=== PATIENT | female | born 1960 | race Caucasian/White ===

== ENCOUNTER 2020-01-18 17:08 | Observation (INO) | payer MEDICARE, SELFPAY ==
--- NOTE | ~2020-01-18 | CT_ITS ---
EXAMINATION: CT brain wo con DATE: 01/18/2020 18:12 INDICATION: Loss of balance resulting in fall with posterior head injury TECHNIQUE: Computed tomography (CT) of the head was performed without intravenous contrast. Sagittal and coronal reconstructions were performed. The mA was adjusted according to patient size. Iterative reconstruction technique was employed. The dose-length product was 529.67 mGy-cm. COMPARISON: head CT dated 05/19/2018 FINDINGS: No fracture. Unchanged old infarcts in the left occipital lobe, left parietal lobe, right parietal oc cipital region and in both the left and right cerebellar hemispheres. Additional unchanged small old lacunar infarct at the right lentiform nucleus and anterior limb of the left internal capsule. No acu te intracranial hemorrhage, acute infarction or abnormal extra axial fluid collection. Ventricles are normal and symmetric. No mass/mass effect. There is moderate scattered periventricular and subcortic al white matter hypoattenuation consistent with chronic small vessel ischemic disease. Changes of lef t cataract surgery. The orbits and mastoid air cells are normal. Mild mucosal thickening in the bilat eral sphenoid and left maxillary sinus. IMPRESSION: 1. No fracture or acute intracranial process. 2. Unchanged old infarcts in the left occipital lobe, left parietal lobe, right parietal occipital re gion, right lentiform nucleus, anterior limb of the left internal capsule and bilateral cerebellar he mispheres. 3. Moderate scattered nonspecific cerebral white matter hypoattenuation consistent with chronic small vessel ischemic disease. Reviewed, dictated and finalized at location A. IMPRESSION: 1. No fracture or acute intracranial process. 2. Unchanged old infarcts in the left occipital lobe, left parietal lobe, right parietal occipital region, right lentiform nucleus, anterior limb of the left internal capsule and bilateral cerebellar hemispheres. 3. Moderate scattered nonspecific cerebral white matter hypoattenuation consist ent with chronic small vessel ischemic disease.
--- NOTE | ~2020-01-18 | CT_ITS ---
EXAMINATION: CT lumbar spine wo con DATE: 01/18/2020 18:12 INDICATION: Low back pain post fall TECHNIQUE: Computed tomography (CT) of the lumbar spine was performed without intravenous contrast. A utomated exposure control and iterative reconstruction technique were employed. The dose-length produ ct was 903.28 mGy-cm. COMPARISON: None FINDINGS: Unchanged mild lumbar levoscoliosis centered at L3-L4. There is severe associated right-side predomin ant disc height loss with associated degenerative endplate changes at this level. Vertebral body heig hts are normal. No fracture. Mild disc height loss at L2-L3, L4-L5 and mild right-sided predominant d isc height loss at L5-S1. Paravertebral soft tissues are unremarkable. Cholecystectomy clips at the g allbladder fossa. The following disc levels are specifically discussed: T11-T12: The disc does not extend beyond the endplate margin. There is mild/moderate bilateral facet joint osteoarthritis. There is no neural foraminal stenosis. There is no central canal stenosis. T12-L1: Disc is mildly bulging. There is mild left and mild to moderate right facet joint osteoarthri tis. There is no neural foraminal stenosis. There is no central canal stenosis. L1-L2: Disc is mildly bulging. There is mild left and moderate right facet joint osteoarthritis. Ther e is mild bilateral neural foraminal stenosis. There is mild central canal stenosis. L2-L3: Disc is bulging. There is hypertrophy of the ligamentum flavum. There is mild left and mild to moderate right facet joint osteoarthritis. There is mild to moderate bilateral neural foraminal sten osis. There is mild to moderate central canal stenosis. L3-L4: Posterior disc osteophyte complex. There is moderate bilateral facet joint osteoarthritis. The re is moderate right and mild to moderate left neural foraminal stenosis. There is moderate central c anal stenosis. L4-L5: Disc is bulging. There is moderate bilateral facet joint osteoarthritis. There is mild to mode rate bilateral neural foraminal stenosis. There is mild central canal stenosis. L5-S1: Disc is bulging. There is moderate left and moderate to severe right facet joint osteoarthriti s. There is mild bilateral neural foraminal stenosis. There is mild central canal stenosis. IMPRESSION: 1. No acute osseous abnormality. 2. Mild lumbar levoscoliosis with severe spondylosis at L3-L4. Reviewed, dictated and finalized at location A.
[2020-01-18 17:16] VITALS: BP 153/94; PULSE 107; RESP 18; TEMP 36.9; O2SAT 97
--- NOTE | 2020-01-18 17:28 | ECG_ITS ---
Measurements Intervals [place] Rate: 85 P: 35 LA: 210 QRS: 46 QRSD: 84 T: 60 QT: 369 QTc: 441 Interpretive Statements SINUS RHYTHM WITH FIRST DEGREE AV BLOCK POSSIBLE LEFT ATRIAL ENLARGEMENT NONSPECIFIC T-WAVE ABNORMALITY- HIGH LATERAL LEADS ABNORMAL ECG Electronically Signed On 01-19-2020 7:02:01 CDT by Javier Lugo D.O.
--- NOTE | 2020-01-18 17:35 | ED.BACK ---
HPI - Back Pain/Injury General Chief Complaint: Back Pain/Injury Stated Complaint: back pain after fall yesterday Time Seen by Provider: 01/18/20 17:18 History of Present Illness HPI Narrative: Low back pain since falling yesterday. She reports losing her balance and falling backwards striking her head and back. The pain is severe. No radiation. She also reports increased urination, nausea, and weakness. She says that she has not been using insulin for 10-11 years because she ran out of needles. History limited by poor historian. Related Data Home Medications Medication Instructions Recorded Confirmed carvedilol 12.5 mg tablet 12.5 mg PO BID tablet 09/27/19 01/18/20 clonazepam 1 mg PO BID 01/18/20 01/18/20 trazodone 50 mg PO HS 01/18/20 01/18/20 Allergies Allergy/AdvReac Type Severity Reaction Status Date / Time sumatriptan Allergy Severe Unknown Verified 07/20/19 10:37 guaifenesin Allergy Intermediate Unknown Verified 07/20/19 10:37 metformin Allergy Intermediate hives Verified 09/29/19 13:39 tramadol Allergy Intermediate Unknown Verified 07/20/19 10:37 ketorolac Allergy Unknown Unknown Verified 07/20/19 10:37 naproxen Allergy Unknown Rash Verified 07/20/19 10:37 pregabalin Allergy Unknown Rash Verified 07/20/19 10:37 sertraline Allergy Unknown Unknown Verified 07/20/19 10:37 KETOROLAC TROMETHAMINE Allergy Intermediate RASH Uncoded 07/20/19 10:37 SERTRALINE HCL Allergy Mild Hives / Uncoded 07/20/19 10:37 Red Face METFORMIN HCL AdvReac Mild Nausea and Uncoded 07/20/19 10:37 Vomiting SUMATRIPTAN SUCCINATE AdvReac Mild Other Uncoded 07/20/19 10:37 Review of Systems Review of Systems: All systems reviewed & are unremarkable except as noted in HPI and below Constitutional: Constitutional: Denies fever(s) and Reports weakness Cardiovascular: Cardiovascular: Denies chest pain Respiratory: Respiratory: Reports dyspnea Gastrointestinal: Gastrointestinal: Reports nausea Genitourinary: Genitourinary: Reports nocturia Musculoskeletal: Musculoskeletal: Reports back pain Neurologic: Reports dizziness Psychiatric: Psychiatric: Reports anxiety and Reports depression [facility] Past Medical History Medical History (Updated 01/19/20 @ 07:08 by Benito Ruggiero MD) Age related osteoporosis Anxiety and depression Cerebrovascular accident With mild right-sided weakness. Chronic obstructive pulmonary disease Chronic shoulder pain Diabetic peripheral neuropathy Dyslipidemia Essential hypertension Insulin dependent type 2 diabetes mellitus Medically noncompliant Migraine Seizure Surgical History Surgical History (Updated 01/19/20 @ 00:04 by Erika Delgado PA-C) History of cholecystectomy History of shoulder surgery History of tubal ligation Family History Family History Mother Bone cancer Hypertension Father Cancer of kidney Hypertension Social History Social History (Updated 01/19/20 @ 00:06 by Erika Delgado PA-C) Social History: The patient lives in [place] with her . They have 1 son. 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 She smoked a half a pack of cigarettes for short period of time and has not smoked for many years. She drinks alcohol rarely and in moderation. No illicit substance use. She designates her , Dale as her surrogate decision maker and she wishes to be a full code. Smoking packs per day: 0.5 Smoking cigarettes per day: 10.0 Spiritual care concerns: Yes (roman catholic) Exam Const: General: no acute distress, alert and ill appearing chronically Nutritional Appearance: obese Orientation/consciousness: patient oriented x3 HENMT: Teeth and gingiva: abnormal tooth and associated gingiva Eyes: Pupils: Equal, round and reactive pupils present Resp: Effort & Inspection: normal respiratory effort Auscultation: clear to auscultation bila
[2020-01-18] MEDS: SODIUM CHLORIDE 0.9% IV 1,000 ML 999 ML IV CONT ×2 (17:48→18:40)
[2020-01-18 17:49] LABS: Basophils Percent Auto 0.7 % (0.2-1.2); Eosinophils Absolute Auto 0.1 K/mm3 (0-0.3); Eosinophils Percent Auto 2.1 % (0-4.4); Hematocrit 36.7 % (37.0-47.0); Hemoglobin 12.3 g/dL (12.0-15.0); Immature Granulocyte Absolute 0.02 K/mm3 (0.00-0.031); Immature Granulocyte Percent A 0.3 % (0-0.5); Lymphocytes Absolute Auto 1.79 K/mm3 (0.9-3.2); Lymphocytes Percent Auto 30.8 % (18.3-44.2); Mean Corpuscular HGB Conc 33.5 g/dl (32-36); Mean Corpuscular Hemoglobin 28.8 pg (26-34); Mean Corpuscular Volume 85.9 fl (80-100); Mean Platelet Volume 9.8 fl (7.4-10.4); Monocytes Absolute Auto 0.5 K/mm3 (0.1-0.6); Neutrophils Absolute Auto 3.3 K/mm3 (1.3-6.7); Neutrophils Percent Auto 57.1 % (45.5-73.1); Platelet Count Result 312 k/mm3 (150-375); Red Blood Count 4.27 M/mm3 (4.2-5.4); Red Cell Distribution Width 13.6 % (11.5-14.5); White Blood Count 5.8 K/mm3 (4.5-10.0)
[2020-01-18 18:00] LABS: Lactic Acid Reflex 3.6 mmol/L (0.7-2.1)
[2020-01-18 18:05] LABS: Alanine Aminotransferase 17 U/L (4-35); Albumin Level 4.1 g/dL (3.5-5.1); Alkaline Phosphatase 101 U/L (38-126); Aspartate Amino Transferase 21 U/L (14-36); Bilirubin,Total 0.2 mg/dL (0.2-1.3); Blood Urea Nitrogen 20 mg/dL (7-17); Carbon Dioxide 19 mmol/L (22-30); Chloride 100 mmol/L (98-107); Estimated CRCL calculation 43 ml/min; Estimated Glomerular Filt Rate 57; Glucose 580 mg/dL (65-105); Potassium 4.1 mmol/L (3.4-5.0); Sodium 131 mmol/L (137-145)
--- NOTE | 2020-01-18 18:29 | PC.NURSE ---
Pt contaminated urine sample with stool upon collection. Sample was thrown away.
[2020-01-18 18:31] VITALS: BP 180/89; PULSE 82; RESP 97; O2SAT 97
[2020-01-18] MEDS: INSULIN HUMAN REGULAR (*BKC) 100 UNITS/ML 12 UNITS IV PUSH (18:40)
[2020-01-18 19:13] LABS: Add Urine Microscopic? YES; Appearance Urine Clear (Clear); Bilirubin Urine Negative (Negative); Blood Urine Negative (Negative); Color Urine Colorless (Yellow); Glucose Urine UA 3+ mg/dL (Negative); Ketones Urine Negative (Negative); Leukocyte Esterase Ur Negative LEU/UL (Negative); Nitrate Urine Negative (Negative); Protein Urine Negative (Negative); RBC Urine 0-2 /hpf (0-2); Specific Grav Ur 1.014 (1.001-1.035); Squamous Epithelial Cell Urine Few /hpf (Few); Urobilinogen Urine Negative mg/dL (<2.0); WBC Urine 0-3 /hpf
[2020-01-18 19:37] LABS: Glucose Point of Care 295 (65-105)
[2020-01-18 19:54] VITALS: BP 227/95; PULSE 85; RESP 17; TEMP 36.1; O2SAT 99
--- NOTE | 2020-01-18 20:42 | PC.NURSE ---
This patient, Roxane Long, was admitted to Medical Room 349-01. Patient/family oriented to hospital policies and general routines including ID bracelet, bed and alarms, visiting hours, pain management, procedures, bathroom and other care routines, personal items, smoking policy, room service/diet, and visiting hours. Valuables list has been completed. Information on how to activate the Rapid Response Team has been discussed. Patient/Family are encouraged to report perceived risks to care and to ask questions if they do not understand what they are told or what they should do.
[2020-01-18 20:47] LABS: Reflex Lactic Acid Yes or No Add Lactic
[2020-01-18 20:54] VITALS: BP 150/108; PULSE 81; RESP 16; TEMP 36.3; O2SAT 100
[2020-01-18 20:55] VITALS: BMI 24.6
[2020-01-18 21:45] LABS: Lactic Acid 1.9 mmol/L (0.7-2.1)
--- NOTE | 2020-01-18 22:00 | PM.IMHP ---
H&P: HPI History of Present Illness Chief complaint: Back pain after fall. Narrative: Roxane Long is a 59-year-old female with history of medication noncompliance, insulin-dependent diabetes with peripheral neuropathy, hypertension, dyslipidemia, and history of stroke who presented to the emergency department earlier this evening from home for evaluation of back pain after a fall yesterday. She had a mechanical fall yesterday, tripping over a rug while caring a case of soda. She landed on her back, striking her head on the floor, and she has had pain in her mid to lower back since that time. She has a difficult time describing the pain, but is caused her enough grief that she came to the emergency department as Tylenol was of no benefit. She has been ambulating with a walker since that time. Imaging done on arrival to the emergency department was unremarkable, but she was found to have severe hyperglycemia and with further questioning she mentions that she ran out of her medicines 2 weeks ago, however later in the interview she tells me it has been months since she has taken some of her medications. She does continue to check her glucose, and says it typically runs in the 300s. Currently she rates her pain 6/10 and states is in the mid to low back, without radiation. She denies focal weakness, paresthesias (other than her chronic neuropathy), saddle anesthesia, bowel and bladder incontinence. No vertigo or auditory or visual changes. Review of Systems Review of Systems: Narrative: Twelve systems were reviewed with pertinent positives and negatives as per HPI. She does admit to chronic, poor balance that may be due to her peripheral neuropathy. No fever, chills, or sweats. She denies recent cold and flu symptoms. No cough or shortness of breath. She denies chest pain. Appetite has been okay, but she has lost about 12 pounds since winter for unclear reasons. She denies nausea, vomiting, and diarrhea. No blood or mucus in the stool. She denies dysuria and hematuria. She occasionally has blurry vision and does report polydipsia and polyuria. Except as documented, all other systems were reviewed and are negative. [facility] Past Medical History Medical History (Updated 01/19/20 @ 00:13 by Erika Delgado PA-C) Age related osteoporosis Anxiety and depression Cerebrovascular accident With mild right-sided weakness. Chronic obstructive pulmonary disease Chronic shoulder pain Diabetic peripheral neuropathy Dyslipidemia Essential hypertension Insulin dependent type 2 diabetes mellitus Medically noncompliant Migraine Seizure Surgical History Surgical History (Updated 01/19/20 @ 00:04 by Erika Delgado PA-C) History of cholecystectomy History of shoulder surgery History of tubal ligation Family History Family History Mother Bone cancer Hypertension Father Cancer of kidney Hypertension Social History Social History (Updated 01/19/20 @ 00:06 by Erika Delgado PA-C) Social History: The patient lives in [place] with her . They have 1 son. 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 She smoked a half a pack of cigarettes for short period of time and has not smoked for many years. She drinks alcohol rarely and in moderation. No illicit substance use. She designates her , Dale as her surrogate decision maker and she wishes to be a full code. Smoking packs per day: 0.5 Smoking cigarettes per day: 10.0 Spiritual care concerns: Yes (worship) Meds Home Medications and Allergies Home Medications Medication Instructions Recorded Confirmed Type lisinopril 20 mg tablet 20 mg PO BID #60 tablet 06/23/19 01/18/20 Rx venlafaxine 150 mg 150 mg PO DAILY #30 cap 07/20/19 01/18/20 Rx capsule,extended release 24 hr [id number]-aacabliibalmc-pazglleu 1 tablet PO .COMPLEX PRN tablet 08/10/19 Hist
[2020-01-18] MEDS: LACTATED RINGERS 1,000 ML 125 ML IV CONT (22:46)
[2020-01-18 23:05] LABS: Glucose Point of Care 147 (65-105)
[2020-01-19] VITALS (11 sets, daily range): BP systolic 160–193; BP diastolic 82–98; PULSE 71–90; RESP 14–18; TEMP 36.2; O2SAT 97–100; BMI 24.6
[2020-01-19 00:22] LABS: Hemoglobin A1C 12.3 % (<5.7)
[2020-01-19] MEDS: CLONAZEPAM 0.5 MG TAB PO ×3 (00:22→17:02)
[2020-01-19] MEDS: hydrALAZINE HCL 20 MG/ML VIAL 5 MG IV PUSH (05:30)
[2020-01-19 05:38] LABS: Hematocrit 34.1 % (37.0-47.0); Hemoglobin 11.3 g/dL (12.0-15.0); Mean Corpuscular HGB Conc 33.1 g/dl (32-36); Mean Corpuscular Hemoglobin 28.3 pg (26-34); Mean Corpuscular Volume 85.5 fl (80-100); Mean Platelet Volume 9.2 fl (7.4-10.4); Platelet Count Result 294 k/mm3 (150-375); Red Blood Count 3.99 M/mm3 (4.2-5.4); Red Cell Distribution Width 13.4 % (11.5-14.5); White Blood Count 6.8 K/mm3 (4.5-10.0)
[2020-01-19 05:56] LABS: Blood Urea Nitrogen 18 mg/dL (7-17); Calcium 8.3 mg/dL (8.4-10.2); Carbon Dioxide 24 mmol/L (22-30); Chloride 108 mmol/L (98-107); Estimated CRCL calculation 38 ml/min; Estimated Glomerular Filt Rate 57; Glucose 257 mg/dL (65-105); Magnesium 1.6 mg/dL (1.6-2.3); Phosphorus 4.2 mg/dL (2.5-4.5); Potassium 3.8 mmol/L (3.4-5.0); Sodium 136 mmol/L (137-145)
[2020-01-19] MEDS: LABETALOL HCL INJ 100 MG/20 ML VIAL 20 MG IV PUSH (06:40)
[2020-01-19 07:49] LABS: Glucose Point of Care 254 (65-105)
[2020-01-19] MEDS: INSULIN ASPART (*BKC) 100 UNITS/ML SUB-Q ×5 (09:16→16:10)
[2020-01-19] MEDS: MAGNESIUM SULF 2 GM/WATER 50ML 2 GM/50 ML BAG IVPB (09:19)
[2020-01-19 11:45] LABS: Glucose Point of Care 302 (65-105)
--- NOTE | 2020-01-19 12:23 | PM.IMPN ---
Progress Note: A&P Assessment and Plan (1) Insulin dependent type 2 diabetes mellitus: Code(s): E11.9 - Type 2 diabetes mellitus without complications; Z79.4 - [facility] (current) use of insulin Status: Acute Assessment and Plan: She has been out of her insulin for quite some time. Hemoglobin A1c 12.3. She has been seen by Jaimee, brewery pumper. Start back on basal-bolus insulin regimen based on her weight; 12 units lantus qHS, 4 novolog TIDWM. Blood sugar 580 last night, down to 200s today. Continue to monitor with accu-cheks. (2) Fall from ground level: Code(s): W18.30XA - Fall on same level, unspecified, initial encounter Status: Acute Assessment and Plan: Mechanical fall 01/16, reportedly tripping over a rug. It sounds as though she has poor balance chronically, may be due to neuropathy. PT/OT consulted. Initiate fall precautions. (3) Back pain: Qualifiers: Back pain laterality: unspecified Back pain location: low back pain Chronicity: chronic Sciatica presence: without sciatica Qualified Code(s): M54.5 - Low back pain; G89.29 - Other chronic pain Code(s): M54.9 - Dorsalgia, unspecified Status: Acute Assessment and Plan: [place] PRN, heating pad. (4) Medically noncompliant: Code(s): Z91.19 - Patient's noncompliance with other medical treatment and regimen Status: Acute Assessment and Plan: She was fired from her primary care provider Dr Cutler sometime in September. It is really unclear if and what medication she is currently still taking. She has poor insight with regards to her medical conditions. (5) Essential hypertension: Code(s): I10 - Essential (primary) hypertension Status: Acute Assessment and Plan: Blood pressures as high as 227/95. Appears she used to take norvasc and lisinopril, will add these back and continue IV hydralazine PRN. (6) Anxiety and depression: Code(s): F41.9 - Anxiety disorder, unspecified; F32.9 - Major depressive disorder, single episode, unspecified Status: Acute Assessment and Plan: Will continue clonazepam p.r.n. She reports she is supposed to be on Effexor and requests to add this back. (7) Elevated lactic acid level: Code(s): R79.89 - Other specified abnormal findings of blood chemistry Status: Resolved Assessment and Plan: No history to suggest underlying infection. 3.9 on arrival improved to 1.9. Subjective Date/time seen: 01/19/20 1130 Interval history: Ms. Long is a 59yo F admitted for hyperglycemia. She came in to ED for back pain after a fall at home and blood sugar was found to be 580 in ED. Her responses have been inconsistent for each provider but it is clear she has been not using her insulin for a period of time. On my encounter her only complaint is her lower back discomfort which she notes has improved with Plush and heating pad. She reports no abdominal pain, nausea, or vomiting today. No chest pain or shortness of breath. Review of Systems Review of Systems: Narrative: Twelve systems were reviewed with pertinent positives and negatives as per HPI. Exam Narrative: Exam Narrative: General: Female appears older than stated age; resting comfortably in bedside chair in no acute distress. HEENT: Normocephalic, EOMI, oral mucosa tacky, edentulous. Cardiovascular: Rate and rhythm are regular. Respiratory: Lungs clear to auscultation all beltre. Non-labored breathing. Abdomen: Soft, non-tender, non-distended, bowel sounds present. Extremities: Peripheral pulses intact. No edema. Neuro: No focal neurological deficits. Speech is clear. Judgment and insight are poor. Objective Data Vital Signs Vital Signs:
[2020-01-19] MEDS: lisinopriL 20 MG TABLET PO (12:41)
[2020-01-19] MEDS: PANTOPRAZOLE 40 MG TABLET PO (12:41)
[2020-01-19] MEDS: LACTATED RINGERS 1,000 ML 60 ML IV CONT (13:03)
[2020-01-19] MEDS: VENLAFAXINE HCL 25 MG TABLET PO (16:07)
[2020-01-19] MEDS: hydrALAZINE HCL 20 MG/ML VIAL 10 MG IV PUSH (16:11)
[2020-01-19 16:41] LABS: Glucose Point of Care 273 (65-105)
[2020-01-19] MEDS: carvediloL 12.5 MG TABLET PO (20:35)
[2020-01-19] MEDS: INSULIN GLARGINE (*BKC) 100 UNITS/ML 12 UNITS SUB-Q (20:38)
[2020-01-19 20:54] LABS: Glucose Point of Care 327 (65-105)
[2020-01-19] MEDS: TOLNAFTATE 1% POWDER 45 GM BTL 1 APPLIC TOPICAL (23:52)
[2020-01-20] VITALS (7 sets, daily range): BP systolic 137–182; BP diastolic 74–86; PULSE 62–80; RESP 14; TEMP 36.2; O2SAT 98
[2020-01-20] MEDS: CLONAZEPAM 0.5 MG TAB PO ×2 (02:30→11:55)
[2020-01-20 06:18] LABS: Blood Urea Nitrogen 15 mg/dL (7-17); Calcium 8.4 mg/dL (8.4-10.2); Carbon Dioxide 23 mmol/L (22-30); Chloride 105 mmol/L (98-107); Estimated CRCL calculation 53 ml/min; Estimated Glomerular Filt Rate > 60; Glucose 226 mg/dL (65-105); Sodium 133 mmol/L (137-145)
[2020-01-20 08:04] LABS: Glucose Point of Care 192 (65-105)
[2020-01-20] MEDS: lisinopriL 20 MG TABLET PO (08:18)
[2020-01-20] MEDS: PANTOPRAZOLE 40 MG TABLET PO (08:18)
[2020-01-20] MEDS: VENLAFAXINE HCL 25 MG TABLET PO (08:18)
[2020-01-20] MEDS: carvediloL 12.5 MG TABLET PO (08:18)
[2020-01-20] MEDS: TOLNAFTATE 1% POWDER 45 GM BTL 1 APPLIC TOPICAL (08:19)
[2020-01-20] MEDS: INSULIN ASPART (*BKC) 100 UNITS/ML SUB-Q ×3 (08:19→11:49)
[2020-01-20 11:48] LABS: Glucose Point of Care 240 (65-105)
--- NOTE | 2020-01-20 18:17 | PM.DS ---
DS: Admitting Diagnosis Admitting Diagnosis Admitting Diagnosis: Fall on same level, unspecified, initial encounter DS: Discharge Diagnosis Discharge Diagnosis (1) Insulin dependent type 2 diabetes mellitus: Code(s): E11.9 - Type 2 diabetes mellitus without complications; Z79.4 - prison (current) use of insulin Status: Acute Assessment and Plan: Date of Service 01/20/20 Ms. Long is a 59yo F with history of insulin-dependent type 2 DM, hypertension, anxiety and depression who presented to the ED for evaluation of back pain after a mechanical fall. She does have a history of chronic back pain. Lumbar spine XR shows no acute findings or fractures. Blood pressures were found to be significantly elevated in the ED and blood sugar was 580. She is known to have medical noncompliance. She noted that it had been ?quite some time since she had picked up her insulin from the pharmacy. She also described that she was out of pen needles and had not been taking her insulin. She described that she thought her blood sugars were consistently in the 300s for a while. She was seen by the tobacco educator. She was restarted on a basal-bolus insulin regimen with 14 units of Lantus q.h.s. and 4 units of NovoLog TID with meals plus a sliding scale. Blood sugars improved with this regimen. She was also restarted on lisinopril and Norvasc, which she had also not taken in quite some time. Her blood pressures were improved to 137/74 day of discharge. It is noted that she was recently dismissed from her primary care provider in September. She was provided a list local PCPs and educated on the importance of establishing care as soon as possible for further management of her hypertension and diabetes. Her Hgb A1c was 12.3. Her blood sugars and blood pressures were improved with re-initiation of these regimens and she was hemodynamically stable for discharge 01/20/2020. It was felt that she has very poor insight and judgment regarding her medical conditions despite repeated teaching. She has been out of her insulin for quite some time. Hemoglobin A1c 12.3. She has been seen by Jaimee tobacco educator. Start back on basal-bolus insulin regimen based on her weight; 14 units lantus qHS, 4 novolog TIDWM plus sliding scale novolog. (2) Fall from ground level: Code(s): W18.30XA - Fall on same level, unspecified, initial encounter Status: Acute Assessment and Plan: Mechanical fall 01/16, reportedly tripping over a rug. It sounds as though she has poor balance chronically, may be due to neuropathy. (3) Back pain: Qualifiers: Back pain laterality: unspecified Back pain location: low back pain Chronicity: chronic Sciatica presence: without sciatica Qualified Code(s): M54.5 - Low back pain; G89.29 - Other chronic pain Code(s): M54.9 - Dorsalgia, unspecified Status: Acute Assessment and Plan: [place] PRN, heating pad. (4) Medically noncompliant: Code(s): Z91.19 - Patient's noncompliance with other medical treatment and regimen Status: Acute Assessment and Plan: She was fired from her primary care provider Dr Cutler sometime in September. It is really unclear if and what medication she is currently still taking. She has poor insight with regards to her medical conditions. (5) Essential hypertension: Code(s): I10 - Essential (primary) hypertension Status: Acute Assessment and Plan: Blood pressures as high as 227/95. Appears she used to take norvasc and lisinopril so those were restarted, blood pressures improved. (6) Anxiety and depression: Code(s): F41.9 - Anxiety disorder, unspecified; F32.9 - Major depressive disorder, single episode, unspecified Status: Acute
== END 2020-01-20 16:10 | disposition home or self-care (01) ==
LOC: ANHED 19:20 → ANH3MED 01-19 00:13
PROVIDERS: Physician Assistant; Admitting Provider Family Medicine; Emergency Provider Emergency Medicine; Visit Provider Hospitalist
DX: E11.65 Type 2 diabetes mellitus with hyperglycemia (principal); Z91.14 Patient's other noncompliance with medication regimen; M54.5 Low back pain; W01.10XA Fall on same level from slipping, tripping and stumbling with subsequent striking against unspecified object, initial encounter; E11.42 Type 2 diabetes mellitus with diabetic polyneuropathy; I10 Essential (primary) hypertension; F32.9 Major depressive disorder, single episode, unspecified; F41.8 Other specified anxiety disorders; R79.89 Other specified abnormal findings of blood chemistry; J44.9 Chronic obstructive pulmonary disease, unspecified; E78.5 Hyperlipidemia, unspecified; M81.0 Age-related osteoporosis without current pathological fracture; Z79.899 Other long term (current) drug therapy
CPT/HCPCS: 36415; 70450; 72131; 80048; 80053; 81001; 82948; 83036; 83605; 83735; 84100; 85025; 85027; 93005; 96361; 96365; 96374; 96375; 96376; 97110; 97116; 97161; 97165; 97535; 99285; A9270; G0378; J0360; J1815; J3475; J7030; J7120